=== PATIENT | female | born 1935 | race Caucasian/White ===

== ENCOUNTER 2018-03-09 18:28 | Emergency (ER) | payer OTHER ==
[2018-03-09] MEDS: DIAZEPAM 5 MG TAB PO (19:04)
[2018-03-09] MEDS: ACETAMINOPHEN 325 MG TAB PO (19:04)
== END 2018-03-09 21:10 | disposition home or self-care (01) ==
LOC: E/R 18:28
DX: S80.01XA Contusion of right knee, initial encounter (principal); I10 Essential (primary) hypertension; R40.2252 Coma scale, best verbal response, oriented, at arrival to emergency department; R40.2362 Coma scale, best motor response, obeys commands, at arrival to emergency department; R40.2142 Coma scale, eyes open, spontaneous, at arrival to emergency department; W01.0XXA Fall on same level from slipping, tripping and stumbling without subsequent striking against object, initial encounter; Y92.9 Unspecified place or not applicable; Z79.82 Long term (current) use of aspirin
CPT/HCPCS: 73562; 99283-25